=== PATIENT | female | born 1955 | race Caucasian/White ===

== ENCOUNTER 2018-11-10 10:36 | Inpatient (IN) | payer MEDICARE ==
--- NOTE | 2018-11-10 10:56 | ED ---
Back Pain - History of Current Complaint Chief Complaint: EDChestPainROMI Stated Complaint: CHEST TIGHTNESS Time Seen by Provider: 11/10/18 10:47 Hx Obtained From: Patient Pain Intensity: 0 - Allergies/Home Medications Allergies/Adverse Reactions: Allergies Allergy/AdvReac Type Severity Reaction Status Date / Time lorazepam Allergy Tachycardia Verified 11/10/18 10:45 Sulfa (Sulfonamide Allergy Rash Verified 11/10/18 10:45 Antibiotics) PMH/Surg Hx/FS Hx/Imm Hx Endocrine/Hematology History: Denies: Hx Blood Disorders, Hx Blood Transfusions, Hx Bone Marrow Disease, Hx Diabetes, Hx Systemic Lupus Erythematosus, Hx Sickle Cell Disease, Hx Thyroid Disease, Hx Anemia, Hx Unexplained Bleeding, Other Endocrine/ Hematological Disorders Cardiovascular History: Reports: Hx Hypercholesterolemia Denies: Hx Aneurysm, Hx Angina, Hx Angioplasty, Hx Auto Implanted Cardiovert Defib, Hx Cardiac Arrest, Hx Cardiomegaly, Hx Congenital Heart Disease, Hx Congestive Heart Failure, Hx Coronary Artery Disease, Hx Deep Vein Thrombosis, Hx Embolism, Hx Hypotension, Hx Hypertension, Hx Pacemaker/ICD, Hx Peripheral Vascular Disease, Hx Rheumatic Fever, Hx Syncope, Hx Valvular Heart Disease, Other Cardiovascular Problems/Disorders Respiratory History: Reports: Hx Asthma, Hx Chronic Bronchitis Denies: Hx Chronic Obstructive Pulmonary Disease (COPD), Hx Cystic Fibrosis, Hx Lung Cancer, Hx Pleural Effusion, Hx Pneumonia, Hx Pulmonary Edema, Hx Pulmonary Embolism, Hx Seasonal Allergies, Hx Sleep Apnea, Other Respiratory Problems/Disorders GI History: Reports: Hx Gall Bladder Disease, Hx Gastroesophageal Reflux Disease , Other GI Disorders - fahad, appy in past Denies: Hx Cirrhosis, Hx Crohn's Disease, Hx Diverticulosis, Hx Gastrointestinal Bleed, Hx Hiatal Hernia, Hx Irritable Bowel, Hx Jaundice, Hx Obstructive Bowel, Hx Ileostomy, Hx Pyloric Stenosis, Hx Ulcer History: Reports: Hx Kidney Stones, Other Problems/Disorders - retroperitoneal fibrosis, hydronephrosis, urinary stent Denies: Hx Acute Renal Failure, Hx Benign Prostatic Hyperplasia, Hx Chronic Renal Failure, Hx Dialysis, Hx Kidney Infection, Hx Renal Disease Musculoskeletal History: Reports: Hx Arthritis, Hx Back Problems - broken vertebrae, sciatica Denies: Hx Bursitis, Hx Congenital Bone Abnormalities, Hx Fibromyalgia, Hx Gout, Hx Orthopedic Injury, Hx Osteoporosis, Hx Scoliosis, Hx Tendonitis Sensory History: Reports: Hx Cataracts - per pt, Hx Contacts or Glasses Denies: Hx Eye Injury, Hx Eye Prosthesis, Hx Glaucoma, Hx Legally Blind, Hx Macular Degeneration, Hx Vision Problem, Hx Deafness, Hx Hearing Aid, Hx Hearing Problem, Other Sensory Impairments Opthamlomology History: Reports: Hx Cataracts - per pt, Hx Contacts or Glasses Denies: Hx Eye Injury, Hx Eye Prosthesis, Hx Glaucoma, Hx Legally Blind, Hx Macular Degeneration, Hx Vision Problem, Other Sensory Impairments Neurological History: Reports: Hx Spinal Cord Injury - recent back surgery, Hx Transient Ischemic Attacks (TIA), Other Neuro Impairments/Disorders - 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 Denies: Hx Dementia, Hx Developmental Delay, Hx Headaches, Hx Migraine, Hx Nerve Disease, Hx Seizures Psychiatric History: Reports: Hx Depression, Hx Bipolar Disorder Denies: Hx Anxiety, Hx Attention Deficit Hyperactivity Disorder, Hx Eating Disorder, Hx Panic Disorder, Hx Post Traumatic Stress Disorder, Hx Inpatient Treatment, Hx Community Mental Health Tx, Hx Schizophrenia, Hx Suicide Attempt, Hx of Violent Episodes Against Others, Hx Substance Abuse - Cancer History Hx Chemotherapy: No Hx Radiation Therapy: No Hx Palliative Cancer Treatment: No - Surgical History Surgery Procedure, Year, and Place: CHOLECYSTECTOMY, APPENDECTOMY, HYSTERECTOMY , urinary stents, back surgery for herniated disk Hx Anesthesia Reactions: No Infectious Disease History: No Infectious Disease History: Reports: Hx Shingles - 2001 Denies: Hx Clostridium Difficile, Hx Hepatitis, Hx Human Immunodeficiency Virus (HIV), Hx of Known/Suspected MRSA, Hx Tuberculosis, Hx Known/Suspected VRE , Hx Known/Suspected VRSA, History Other Infectious Disease, Traveled Outside the [place] in Last 30 Days - Family History Known Family History: Positive: Cardiac Disease, Hypertension, Diabetes - Social History Alcohol Use: None Substance Use Type: Reports: None Hx Tobacco Use: No Smoking Status (MU): Former Smoker Type: Cigarettes Amount Used/How Often: < 1PPD X 14 YEARS Length of Time of Smoking/Using Tobacco: OFF AND ON (4YEARS IN COLLEGE QUIT FOR 20 YRS, THEN 5 YRS, AND QUIT) Have You Smoked in the Last Year: No Physical Exam Vital Signs On Initial Exam: Initial Vitals Temp Pulse Resp BP Pulse Ox 97.6 F 72 16 172/92 99 11/10/18 10:40 11/10/18 10:40 11/10/18 10:40 11/10/18 10:40 11/10/18 10:40 Diagnostics - Vital Signs Vital Signs Temp Pulse Resp BP Pulse Ox 11/10/18 10:40 97.6 F 72 16 172/92 99 - Laboratory Lab Statement: Any lab studies that have been ordered have been reviewed, and results considered in the medical decision making process. Discharge - Discharge Plan Referrals: Jarad GALVAN,Jacquie Beltre [Primary Care Provider] - - Attestation Statements Document Initiated by Scribe: Yes
--- NOTE | 2018-11-10 11:17 | ED ---
HPI Chest Pain - HPI Summary HPI Summary: A 63 y/o female presents to the ED c/o chest pain. In the ED room, the patient has a pulse of 67 BPM, O2 saturation of 100%, respiratory rate of 19, and blood pressure of 164/74. According to the patient, she has had a stent placed in her coronary artery a year ago. She stated that because of the stent working so well , she was taken off Berlinta as everything was perfect. She stated that she suddenly experienced the same sensation of tightening of her chest and fluttering activity that is "somewhat disorientating". She addtionally felt SOB , but denies any nausea or dizziness. She noted her BP was high. She was referred from her regulatory services consultant office to [facility] [place] ED because of the HBP. Patient did not take any Aspirin or NTG. - History of Current Complaint Chief Complaint: EDChestPainROMI Time Seen by Provider: 11/10/18 10:47 Hx Obtained From: Patient Onset/Duration: Started Hours Ago, Resolved Timing: Constant Current Severity: None Pain Intensity: 0 Pain Scale Used: 0-10 Numeric Chest Pain Location: Diffuse Chest Pain Radiates: No Character: Fluttering, Tightness Aggravating Factor(s): Nothing Alleviating Factor(s): Nothing Associated Signs and Symptoms: Positive: Chest Pain, Shortness of Breath. Negative: Dizziness, Fever, Nausea - Additional Pertinent History Primary Care Physician: RAJI - Allergy/Home Medications Allergies/Adverse Reactions: Allergies Allergy/AdvReac Type Severity Reaction Status Date / Time lorazepam Allergy Tachycardia Verified 11/10/18 10:45 Sulfa (Sulfonamide Allergy Rash Verified 11/10/18 10:45 Antibiotics) Home Medications: Home Medications Oxybutynin XL TAB* [Ditropan XL TAB*] 15 mg PO BID 11/10/18 [History Confirmed 11/10/18] PMH/Surg Hx/FS Hx/Imm Hx Endocrine/Hematology History: Denies: Hx Blood Disorders, Hx Blood Transfusions, Hx Bone Marrow Disease, Hx Diabetes, Hx Systemic Lupus Erythematosus, Hx Sickle Cell Disease, Hx Thyroid Disease, Hx Anemia, Hx Unexplained Bleeding, Other Endocrine/ Hematological Disorders Cardiovascular History: Reports: Hx Hypercholesterolemia Denies: Hx Aneurysm, Hx Angina, Hx Angioplasty, Hx Auto Implanted Cardiovert Defib, Hx Cardiac Arrest, Hx Cardiomegaly, Hx Congenital Heart Disease, Hx Congestive Heart Failure, Hx Coronary Artery Disease, Hx Deep Vein Thrombosis, Hx Embolism, Hx Hypotension, Hx Hypertension, Hx Pacemaker/ICD, Hx Peripheral Vascular Disease, Hx Rheumatic Fever, Hx Syncope, Hx Valvular Heart Disease, Other Cardiovascular Problems/Disorders Respiratory History: Reports: Hx Asthma, Hx Chronic Bronchitis Denies: Hx Chronic Obstructive Pulmonary Disease (COPD), Hx Cystic Fibrosis, Hx Lung Cancer, Hx Pleural Effusion, Hx Pneumonia, Hx Pulmonary Edema, Hx Pulmonary Embolism, Hx Seasonal Allergies, Hx Sleep Apnea, Other Respiratory Problems/Disorders GI History: Reports: Hx Gall Bladder Disease, Hx Gastroesophageal Reflux Disease , Other GI Disorders - fahad, appy in past Denies: Hx Cirrhosis, Hx Crohn's Disease, Hx Diverticulosis, Hx Gastrointestinal Bleed, Hx Hiatal Hernia, Hx Irritable Bowel, Hx Jaundice, Hx Obstructive Bowel, Hx Ileostomy, Hx Pyloric Stenosis, Hx Ulcer History: Reports: Hx Kidney Stones, Other Problems/Disorders - retroperitoneal fibrosis, hydronephrosis, urinary stent Denies: Hx Acute Renal Failure, Hx Benign Prostatic Hyperplasia, Hx Chronic Renal Failure, Hx Dialysis, Hx Kidney Infection, Hx Renal Disease Musculoskeletal History: Reports: Hx Arthritis, Hx Back Problems - broken vertebrae, sciatica Denies: Hx Bursitis, Hx Congenital Bone Abnormalities, Hx Fibromyalgia, Hx Gout, Hx Orthopedic Injury, Hx Osteoporosis, Hx Scoliosis, Hx Tendonitis Sensory History: Reports: Hx Cataracts - per pt, Hx Contacts or Glasses Denies: Hx Eye Injury, Hx Eye Prosthesis, Hx Glaucoma, Hx Legally Blind, Hx Macular Degeneration, Hx Vision Problem, Hx Deafness, Hx Hearing Aid, Hx Hearing Problem, Other Sensory Impairments Opthamlomology History: Reports: Hx Cataracts - per pt, Hx Contacts or Glasses Denies: Hx Eye Injury, Hx Eye Prosthesis, Hx Glaucoma, Hx Legally Blind, Hx Macular Degeneration, Hx Vision Problem, Other Sensory Impairments Neurological History: Reports: Hx Spinal Cord Injury - recent back surgery, Hx Transient Ischemic Attacks (TIA), Other Neuro Impairments/Disorders - 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 Denies: Hx Dementia, Hx Developmental Delay, Hx Headaches, Hx Migraine, Hx Nerve Disease, Hx Seizures Psychiatric History: Reports: Hx Depression, Hx Bipolar Disorder Denies: Hx Anxiety, Hx Attention Deficit Hyperactivity Disorder, Hx Eating Disorder, Hx Panic Disorder, Hx Post Traumatic Stress Disorder, Hx Inpatient Treatment, Hx Community Mental Health Tx, Hx Schizophrenia, Hx Suicide Attempt, Hx of Violent Episodes Against Others, Hx Substance Abuse - Cancer History Hx Chemotherapy: No Hx Radiation Therapy: No Hx Palliative Cancer Treatment: No - Surgical History Surgery Procedure, Year, and Place: CHOLECYSTECTOMY, APPENDECTOMY, HYSTERECTOMY , urinary stents, back surgery for herniated disk Hx Anesthesia Reactions: No Infectious Disease History: No Infectious Disease History: Reports: Hx Shingles - 2001 Denies: Hx Clostridium Difficile, Hx Hepatitis, Hx Human Immunodeficiency Virus (HIV), Hx of Known/Suspected MRSA, Hx Tuberculosis, Hx Known/Suspected VRE , Hx Known/Suspected VRSA, History Other Infectious Disease, Traveled Outside the [place] in Last 30 Days - Family History Known Family History: Positive: Cardiac Disease, Hypertension, Diabetes - Social History Alcohol Use: None Substance Use Type: Reports: None Hx Tobacco Use: No Smoking Status (MU): Former Smoker Type: Cigarettes Amount Used/How Often: < 1PPD X 14 YEARS Length of Time of Smoking/Using Tobacco: OFF AND ON (4YEARS IN COLLEGE QUIT FOR 20 YRS, THEN 5 YRS, AND QUIT) Have You Smoked in the Last Year: No Review of Systems Negative: Fever Positive: Chest Pain Positive: Shortness Of Breath Negative: Nausea Neurological: Other - NEGATIVE: DIZZINESS All Other Systems Reviewed And Are Negative: Yes Physical Exam - Summary Physical Exam Summary: VITAL SIGNS: Reviewed. GENERAL: Patient is a well-developed and nourished female who is lying comfortable in the stretcher. Patient is not in any acute respiratory distress. HEAD AND FACE: No signs of trauma. No ecchymosis, hematomas or skull depressions. No sinus tenderness. EYES: PERRLA, EOMI x 2, No injected conjunctiva, no nystagmus. EARS: Hearing grossly intact. Ear canals and tympanic membranes are within normal limits. MOUTH: Oropharynx within normal limits. NECK: Supple, trachea is midline, no adenopathy, no JVD, no carotid bruit, no c- spine tenderness, neck with full ROM. CHEST: Symmetric, no tenderness at palpation LUNGS: Clear to auscultation bilaterally. No wheezing or crackles. CVS: Regular rate and rhythm, S1 and S2 present, no murmurs or gallops appreciated. ABDOMEN: Soft, non-tender. No signs of distention. No rebound no guarding, and no masses palpated. Bowel sounds are normal. EXTREMITIES: FROM in all major joints, no edema, no cyanosis or clubbing. NEURO: Alert and oriented x 3. No acute neurological deficits. Speech is normal and follows commands. SKIN: Dry and warm Triage Information Reviewed: Yes Vital Signs On Initial Exam: Initial Vitals Temp Pulse Resp BP Pulse Ox 97.6 F 72 16 172/92 99 11/10/18 10:40 11/10/18 10:40 11/10/18 10:40 11/10/18 10:40 11/10/18 10:40 Vital Signs Reviewed: Yes Diagnostics - Vital Signs Vital Signs Temp Pulse Resp BP Pulse Ox 11/10/18 10:40 97.6 F 72 16 172/92 99 - Laboratory Result Diagrams: 11/10/18 11:03 11/10/18 11:03 Lab Statement: Any lab studies that have been ordered have been reviewed, and results considered in the medical decision making process. - Radiology CXR Radiology Interpretation Completed By: Radiologist Summary of Radiographic Findings: No active cardiopulmonary disease is identified. ED PHYSICIAN REVIEWED THIS RADIOLOGY REPORT. - EKG 1049 Cardiac Rate: Bradycardia - 57 BPM EKG Rhythm: Sinus Bradycardia - 57 BPM Summary of EKG Findings: NO ST ELEVATIONS. Chest Pain Course/Dx - Course Course Of Treatment: A 63 y/o female presents to the ED c/o chest pain. In the ED room, the patient has a pulse of 67 BPM, O2 saturation of 100%, respiratory rate of 19, and blood pressure of 164/74. According to the patient, she has had a stent placed in her coronary artery a year ago. She stated that because of the stent working so well, she was taken off Berlinta as everything was perfect. She stated that she suddenly experienced the same sensation of tightening of her chest and fluttering activity that is "somewhat disorientating ". She addtionally felt SOB, but denies any nausea or dizziness. She noted her BP was high. She was referred from her regulatory services consultant office to [facility] [place] ED because of the HBP. Patient did not take any Aspirin or NTG. Assessment/Plan: Test results without any significant abnormality except for what was a count of 11.3. D-dimer is less than 200 therefore no suspicion for a PE. Glucose 103 month patient was 1.8. The patient was given magnesium by mouth. 2 troponins 4 hours apart as 0.01. EKG shows no ST elevations. Chest x -ray shows no acute. Chest x-ray impression: No active cardiopulmonary disease. In the ED course the patient was given aspirin as her usual medication. She declined nitroglycerin since the chest pain had resolved. Since arrival the patient does have any chest pain. The patient continues to be asymptomatic. First troponin was negative however the second troponin increased to 0.07. The patient believes to be asymptomatic. However because of increased troponin I discussed my physical exam and findings with Dr. Cabrales from the hospitalist services who accepted the patient for admission. Patient is hemolyticus stable alert and oriented 3. - Chest Pain Differential Diagnosis/HQI/PQRI: Acute VA, ACS, Angina, CHF, Chest Wall, GI Disease, Lower Respiratory Infection - Diagnoses Provider Diagnoses: Elevated troponin, Chest pain, Non-STEMI (non-ST elevated myocardial infarction ) - Provider Notifications Discussed Care Of Patient With: Joshua Parry Time Discussed With Above Provider: 16:30 Instructed by Provider To: Other - accepts patient for admission. - Critical Care Time Critical Care Time: 75-104 min Discharge - Sign-Out/Discharge Documenting (check all that apply): Patient Departure - ADMIT, Sign-Out Patient - MOUSTAPHA Signing out patient TO: Joshua Parry Receiving patient FROM: Deny Velasco - Discharge Plan Condition: Stable Disposition: ADMITTED TO [facility] - Billing Disposition and Condition Condition: STABLE Disposition: Admitted to [facility] - Attestation Statements Document Initiated by Vaughne: Yes Documenting Scribe: Edd Robles Provider For Whom Kennedy is Documenting (Include Credential): Deny Velasco MD Scribe Attestation: Edd Gilbert scribed for Deny Velasco MD on 11/10/18 at 1848. Scribe Documentation Reviewed: Yes Provider Attestation: The documentation as recorded by the Edd paredes accurately reflects the service I personally performed and the decisions made by me, Deny Velasco MD Status of Scribe Document: Viewed Attestations Scribe Attestation: Edd Robles User Type: Provider
[2018-11-10 11:18] LABS: ABS Basophils 0.1 10^3/ul (0-0.2); ABS Eosinophils 0.1 10^3/ul (0-0.6); ABS Lymphocytes 1.7 10^3/ul (1.0-4.8); ABS Monocytes 0.5 10^3/ul (0-0.8); ABS Nucleated RBC 0 10^3/ul; Eosinophil % 0.7 %; Hematocrit 41 % (35-47); Hemoglobin 13.5 g/dl (12.0-16.0); Lymphocyte % 15.1 %; Mean Corpuscular HGB Conc 33 g/dl (31-36); Mean Corpuscular Hemoglobin 30 pg (27-31); Mean Corpuscular Volume 90 fL (80-97); Mean Platelet Volume 7.2 fL (7.4-10.4); Nucleated Red Blood Cells % 0; Platelet Count 353 10^3/ul (150-450); Red Blood Count 4.54 10^6/ul (4.00-5.40); Red Cell Distribution Width 14 % (10.5-15); White Blood Count 11.3 10^3/ul (3.5-10.8)
[2018-11-10 11:26] LABS: Activated Partial Thrombo Time 32.1 seconds (26.0-36.3)
[2018-11-10 11:30] LABS: Albumin 4.5 g/dL (3.2-5.2); Albumin/Globulin Ratio 1.7 (1-3); BUN/Creatinine Ratio 22.2 (8-20); Calcium 9.3 mg/dL (8.6-10.3); EGFR African American 99.6 (>60); EGFR Non-African American 82.3 (>60); Globulin 2.7 g/dL (2-4); Magnesium 1.8 mg/dL (1.9-2.7); Potassium 3.9 mmol/L (3.5-5.0); Total Bilirubin 0.3 mg/dL (0.2-1.0); Total Protein 7.2 g/dL (6.4-8.9)
[2018-11-10 11:32] LABS: Troponin I 0.01 ng/mL (<0.04)
[2018-11-10 11:34] LABS: CKMB ng/mL 2.8 ng/mL (0.6-6.3)
[2018-11-10 12:09] LABS: TSH (Thyroid Stimulating Horm) 1.17 mcIU/mL (0.34-5.60)
[2018-11-10] MEDS ORDERED: Aspirin 81 mg CHEW TAB* 81 MG TAB.CHEW PO ONE (13:20)
[2018-11-10] MEDS ORDERED: Albuterol HFA INHALER* 8 gm MDI INH PRN (17:16)
[2018-11-10] MEDS ORDERED: Acetaminophen TAB* 325 MG PO PRN (17:16)
[2018-11-10] MEDS ORDERED: Ondansetron INJ* 2 MG/ML VIAL IV PRN (17:16)
[2018-11-10] MEDS ORDERED: Nitroglycerin TAB 0.4 MG* 0.4 MG TAB SL PRN (17:16)
[2018-11-10] MEDS ORDERED: NS 0.9% 1000 ML** 1,000 ML IV SCH (17:30)
[2018-11-10] MEDS ORDERED: Ticagrelor* 90 MG TAB PO ONE (18:41)
[2018-11-10] MEDS: Enoxaparin(*) 60 MG/0.6 ML SYR SUBCUT SCH (19:07)
[2018-11-10] MEDS: Atorvastatin* 80 MG TAB PO SCH (20:19)
[2018-11-10] MEDS: Oxybutynin XL TAB* 5 MG PO SCH (20:19)
--- NOTE | 2018-11-10 20:44 | HP ---
CC: Dr. Abraham; Dr. Ruiz * ADMISSION HISTORY AND PHYSICAL: DATE OF ADMISSION: 11/10/18 PRIMARY CARE PROVIDER: Dr. Abraham at [facility] SHEET ROLLER OPERATOR: Dr. Ruiz. HEALTHCARE PROXY: Her sister, Janneth. CODE STATUS: Full. SOURCE OF INFORMATION: History obtained from interview with the patient and her son as well as review of past medical records. RELIABILITY: Good. CHIEF COMPLAINT: Chest pain. HISTORY OF PRESENT ILLNESS: A 63-year-old female with past medical history of CAD, status post LAD PCI in 2014, been in her usual state of health until this morning. She woke up okay. She was in bed on the phone with her daughter who is in the emergency room, having a stressful conversation, felt a tightness of her chest associated with a fluttering. It lasted for approximately 1 hour. She noted this is a similar feeling to the sensation she had in 2016 when she had obstructive cardiac disease. The discomfort was nonradiating, lasted for 1 hour, associated with shortness of breath at first but without diaphoresis, nausea, or lightheadedness. She took her blood pressure. It was elevated. She talked to her cardiology office and was directed to EMS to go to [facility]. She sought out her nitroglycerin sublingual; however, it was and she could not take it. When seen by this author, she currently feels okay. 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 Otherwise, she has had no symptoms, diarrhea, or constipation. No fever, chills, or night sweats. The remainder of her 14-point review of systems is negative. PAST MEDICAL HISTORY: Includes CVA x2 in 2003; hyperlipidemia; asthma; bipolar disorder; NSTEMI in 2014, seen with nonobstructive disease; and a CAD, status post LAD PCI in 2016. 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 MEDICATIONS: 1. Fluoxetine 90 mg. 2. Aspirin 81 mg. 3. Lipitor 80 mg. 4. Oxybutynin SR 50 mg twice daily. ALLERGIES: SULFA. FAMILY HISTORY: Paternal grandmother and grandfather with CAD, her brother with diabetes. SOCIAL HISTORY: She is disabled. History of tobacco, quit 10 years prior, has 10- year-pack history. No alcohol. PHYSICAL EXAMINATION GENERAL: A 63-year-old female, older than stated age, sitting up in bed, thin, no apparent distress. VITAL SIGNS: In the emergency room 172/92, 140/70 when seen by this author; heart rate 72, respiratory rate 16, 99% on room air, T-max 97.6. HEENT: Oropharynx is clear. Has dry mucous membranes. Sclerae are anicteric. NECK: Nonelevated JVD, has no carotid bruits. LUNGS: Her lungs are clear to auscultation. HEART: She has a regular rate and rhythm. She has a 2/6 systolic ejection murmur. ABDOMEN: Soft, nontender, nondistended. EXTREMITIES: Warm and well perfused without clubbing, cyanosis, or edema. She is alert and oriented x3. Her cranial nerves II through XII are intact. She has no apparent anxiety, agitation, or depression. LABORATORY DATA/DIAGNOSTIC STUDIES: Labs are reviewed. Troponin I 0.01, increasing to 0.07 on the second check. BNP is 35. D-dimer less than 200. White blood cell count is 11.5, hemoglobin 13.5, platelets 353. EKG notable for sinus bradycardia, ventricular rate of 57, normal axis, normal R - wave progression, mild ST elevation of V1 through V3 with J-point inflection. No other ST or T-wave changes. Chest x-ray, no active cardiopulmonary disease is identified. ASSESSMENT AND PLAN: This is a 63-year-old female with past medical history of coronary artery disease with a stent in her LAD in 2016, presenting with similar symptoms of chest tightness for an hour associated with increasing troponin, no EKG changes. 1. Non-ST elevation myocardial infarction. Continue to cycle troponins. Repeat EKG. Plan a stress tomorrow, exercise with nuclear imaging. Received aspirin, will continue tomorrow. In the setting of compelling story with chest discomfort in the setting of stress as well as history and similarity with the previous event, we will dose full dose of Lovenox now and continue until ruled out. We have ruled out an myocardial infarction. If increasing troponins, warrant earlier intervention, consider cardiology consultation. 2. History of cerebrovascular accidents and coronary artery disease. Continue aspirin. 3. Bipolar disorder/potential history of depression. Fluoxetine, continue. 4. Hyperlipidemia. Continue full dose 80 mg as well as for concern for coronary artery disease indicated above. 5. DVT prophylaxis: Lovenox. [id number]/[facility] #: [id number] MTDD
[2018-11-11] MEDS: Enoxaparin(*) 60 MG/0.6 ML SYR SUBCUT SCH (05:37)
[2018-11-11] MEDS ORDERED: Diazepam TAB(*) 5 MG PO PRN (07:42)
[2018-11-11] MEDS ORDERED: diPHENhydraMINE PO* 25 MG PO PRN (07:42)
[2018-11-11] MEDS ORDERED: NS 0.9% 1000 ML** 1,000 ML IV SCH ×2 (07:45→09:55)
[2018-11-11] MEDS: Aspirin EC TAB* 81 MG TAB.EC PO SCH (08:15)
[2018-11-11] MEDS: Ticagrelor* 90 MG TAB PO SCH ×2 (08:36→18:23)
[2018-11-11] MEDS ORDERED: Heparin(*) 1000 UNIT/ML 10 ML VIAL CATH LAB IV ONE (08:43)
[2018-11-11] MEDS ORDERED: fentaNYL* 50 MCG/ML 2 ML VIAL (100 MCG VIAL) ONE (08:43)
[2018-11-11] MEDS ORDERED: Midazolam* 1 MG/ML 10 ML VIAL (10 MG) ONE (08:43)
[2018-11-11] MEDS ORDERED: Lidocaine 1% INJ* 10 MG/ML 30 ML SDV ONE (08:44)
[2018-11-11] MEDS ORDERED: VERAPAMIL 2.5 MG/ML 2 ML VIAL ** 5 mg/2 ml ONE (08:44)
[2018-11-11] MEDS ORDERED: Heparin 2 UNITS/ML IVPREMIX* 2,000 ML IV ONE (08:44)
[2018-11-11] MEDS ORDERED: nitroGLYCERIN DRIP* 25,000 MCG/250 ML BTL ONE (08:44)
[2018-11-11] MEDS ORDERED: Iohexol 350 (CONTRAST) 200 ML MDV IV ONE ×2 (08:45)
[2018-11-11] MEDS ORDERED: Diltiazem CD CAP* 120 MG PO ONE (09:59)
[2018-11-11] MEDS: Oxybutynin XL TAB* 5 MG PO SCH ×2 (11:07→20:47)
--- NOTE | 2018-11-11 11:20 | CONS ---
CC: Dr. Ruiz; Dr. Ken Yao CARDIOLOGY CONSULTATION: DATE OF CONSULT: 11/11/18 INDICATION FOR CONSULTATION: Coronary disease, acute coronary syndrome. HISTORY OF PRESENT ILLNESS: The patient is a 63-year-old female with a history of coronary disease, history of stenting to her LAD in 2016, who comes in with typical anginal type symptoms. The patient states that she was driving and noticed a burning sensation in her chest, it came on fairly quickly and lasted for approximately an hour and then slowly resolved. It is very similar to her presentatio n back in 2014. When she arrived in the emergency room, she had no EKG changes. The patient overnig ht had a peak troponin level of 0.7. PAST MEDICAL HISTORY: Significant for CVA x2, hyperlipidemia, stenting to her LAD in 2016. PAST SURGICAL HISTORY: Hysterectomy, cholecystectomy, appendectomy. OUTPATIENT MEDICATIONS: 1. Fluoxetine 90 mg a day. 2. Aspirin 81 mg a day. 3. Lipitor 80 mg a day. 4. Oxybutynin 50 mg a day. ALLERGIES: SULFA medications. FAMILY HISTORY: No immediate history of coronary disease in her family. Grandparents had coronary ar ish disease. Brother has diabetes. SOCIAL HISTORY: She is a previous smoker, she quit 10 years ago. She denies any alcohol use. She i s currently not working as she is disabled. PHYSICAL EXAM: Height is 5 feet 7 inches, weight is 125 pounds. Temperature 98.4, heart rate is 60, blood pressure 140/70, respiratory rate is 17, oxygen saturation 100% on room air. Sclerae anicteri c. Oropharynx is pink without erythema. Carotids are 2+ without bruits. JVD is normal. Thyroid is normal. Cardiac Exam: S1, S2 without any murmurs, rubs, or gallops. Lungs: Clear to auscultation b ilaterally. There is no dullness to percussion. Abdomen: Soft, nontender, nondistended with normoa ctive bowel sounds. Extremities: Show no edema. She has 2+ pulses throughout. The patient is awak e, alert, and oriented. She moves all 4 extremities equally. DIAGNOSTIC STUDIES/LAB DATA: Chemistries within normal limits. BUN 16, creatinine 0.7. AST and ALT are normal. Again, peak troponin level is 0.7. TSH is normal. CBC within normal limits. EKG shows normal sinus rhythm. No evidence of acute changes. IMPRESSION: This is a 63-year-old female with a history of coronary disease. She is admitted to the hospital with typical anginal type symptoms. Her troponin level is elevated at 0.7. The patient received Lovenox, Brilinta, and aspirin in the emergency room. For now, my recommendation the patient undergo cardiac catheterization. Risks and benefits of this w ere described in great detail. The patient is willing to proceed. The patient will be seen by Dr. Shayna Yao for cardiac catheterization. [id number]/[facility] #: [id number]
[2018-11-11] MEDS: FLUoxetine CAP* 20 MG PO SCH (15:06)
--- NOTE | 2018-11-11 15:11 | CATH ---
CC: Dr. Kee Ruiz; Jacquie Abraham MD * CARDIAC CATHETERIZATION REPORT: DATE OF PROCEDURE: 11/11/18 - ROOM #444 INDICATION FOR CARDIAC CATHETERIZATION: The patient presents with a chest discomfort after an emotional phone call with abnormal cardiac enzymes raising question of acute coronary syndrome with a history of prior stent to the proximal to mid LAD. Assess for the presence of significant coronary artery disease. PROCEDURE: Coronary arteriography, left heart catheterization, left ventriculography. CONSENT: The patient was interviewed and examined on the floor of the hospital where the risks and benefits were explained. She understood them and wished to proceed. APPROACH UTILIZED: On the floor of the hospital, the radial artery was assessed under ultrasound and found to be as an acceptable access and as such this approach was utilized. PRE-CARDIAC CATHETERIZATION LABORATORY RESULTS: Hemoglobin and hematocrit of 13.5 and 41 with a platelet count of 353,000. BUN and creatinine of 16 and 0.7 , sodium 136, potassium 3.9, chloride 104, bicarb 27. EQUIPMENT UTILIZED: 1. Right radial artery guide sheath - a 6-[place]ian Glidesheath. 2. Diagnostic coronary catheter - a 5-[place]vian TIG 4 curve catheter. 3. Diagnostic guidewire, a 260 length Beckman curved guidewire. 4. Left heart catheterization catheter, a 5-[place] PIG Performa radial catheter. 5. Closure technique utilized, a radial artery band by [employer]. MEDICATIONS GIVEN DURING THE PROCEDURE: 1. Radial artery cocktail including 300 mcg of nitroglycerin and 3 mg verapamil. 2. The patient had already received Valium 5 mg and Benadryl 25 mg orally on the floor of the hospital before coming down. 3. The patient already received her aspirin for this morning and her 90 mg of Brilinta. 4. An additional 0.5 mg of Versed was given to the patient. DESCRIPTION OF PROCEDURE: The patient was brought to the cardiovascular laboratory and a formal time-out was performed. She was prepped and draped in a sterile fashion. Under ultrasound guidance, the right radial artery was cannulated and the sheath was placed. Diagnostic coronary arteriography was performed with a TIG 4 catheter. Central aortic pressure was recorded with the PIG Performa catheter, advanced the ascending aorta where central aortic pressure was recorded. Catheter was then passed across the aortic into the left ventricle where left ventricular pressure was recorded. Left ventriculography was performed utilizing a total of 24 cc of Omnipaque dye at a rate of 12 cc per second. The catheter was then pulled back across the aortic valve to recheck gradient. At the end of the case, the catheter and sheath were removed and hemostasis was obtained with a Vasc Band. The reverse Barbeau was a B. The total contrast used was 90 cc of Omnipaque dye. The radiation exposure included 6.2 minutes of fluoro time. The air kerma radiation was 724 milligray. The DAP radiation was 4226 microgray per meter squared. RESULTS: HEMODYNAMIC DATA: Left heart catheterization - central aortic pressure was recorded at 170/86 with a mean of 123. Left ventricular pressure 166 over left ventricular end- diastolic pressure of 7. LEFT VENTRICULOGRAPHY: Performed in the CHOI projection revealed normal left ventricular systolic function with no significant focal wall motion abnormalities. The overall ejection fraction was 65%. CORONARY ARTERIOGRAPHY: A. Left coronary artery: 1. Left main - widely patient with no obstruction seen. 2. Left anterior descending artery. The left anterior descending artery was noted to have calcium proximally with a stent placed in its proximal to mid portion. There is a caliber change in the most proximal portion of the LAD of about 45-50%, seen in limited views . There was mild in-stent restenosis seen in the distal third of approximately 25% to 30%. Of note, there were 2 septal perforators originating within the stented area, the more proximal one having a 55% to 60% ostial narrowing and the second one having a narrowing as much as 80% . Neither one were deemed to be approachable from an interventional standpoint given their caliber and the fact that they were septal perforators. The first diagonal branch had an eccentric plaque noted at its beginning with a degree of luminal irregularity noted to be approximately 55% to 60%. 3. Circumflex artery - a nondominant vessel supplying a large size obtuse marginal branch extending to the apical posterior region and bifurcating. There were mild luminal irregularities of 20% to 25% noted in the mid portion of that vessel. B. Right coronary artery. The right coronary artery was a dominant vessel supplying the PDA and a posterior left ventricular branch. There was minimal luminal irregularities noted. There was a prominent calix's crook seen in the proximal portion of the vessel. No significant focal stenosis was noted. Of note, the PDA extended to the apex and supplied the distal apical anterior wall. OVERALL ASSESSMENT: Normal left ventricular contractility with mild to moderate proximal LAD tapering with mild in-stent restenosis in prior proximal to mid LAD stent. Moderate disease involving the ostium of a high first diagonal branch as described above with more significant stenosis seen in the ostium of 2 septal perforators that are not deemed to be approached from an interventional standpoint. At this point in time, aggressive medical management will be pursued and the institution of calcium channel fannie for possibly spasm or fixed lesions would be recommended. Of note, her episode of discomfort seemed to develop in the setting of an emotional distressed conversation at rest, not doing physical exertion. Continued aggressive risk factor management under Dr. Ruiz's guidance, her primary sheet metal former, will be recommended and consideration for perhaps outpatient evaluation by exercise stress test to see if there is more significant evidence of ischemia to any of the areas mentioned on medical management. That will be deferred to her followup with Dr. Kee Ruiz. [id number]/[facility] #: [id number] ROYCE
[2018-11-11] MEDS ORDERED: Clopidogrel TAB* 300 MG PO ONE (15:23)
--- NOTE | 2018-11-11 15:26 | PN ---
Subjective Date of Service: 11/11/18 Interval History: Pt feels well, after the cath with R radial approach. Denies CP/SOB Objective Active Medications: Acetaminophen (Tylenol Tab*) 650 mg PO Q4H PRN PRN Reason: FEVER/PAIN Albuterol (Ventolin Hfa Inhaler*) 2 puff INH Q4H PRN PRN Reason: SOB/WHEEZING Aspirin (Aspirin Ec Tab*) 81 mg PO DAILY [facility] Last Admin: 11/11/18 08:15 Dose: 81 mg Atorvastatin Calcium (Lipitor*) 80 mg PO 2100 [facility] Last Admin: 11/10/18 20:19 Dose: 80 mg Diltiazem HCl (Cardizem Cd Cap*) 120 mg PO DAILY [facility] Fluoxetine HCl (Prozac Cap*) 20 mg PO 1200 [facility] Last Admin: 11/11/18 15:06 Dose: 20 mg Nitroglycerin (Nitroglycerin Tab 0.4 Mg*) 0.4 mg SL Q5M PRN PRN Reason: ANGINA Ondansetron HCl (Zofran Inj*) 4 mg IV Q4H PRN PRN Reason: NAUSEA/VOMITING Oxybutynin Chloride (Ditropan Xl Tab*) 15 mg PO BID [facility] Last Admin: 11/11/18 11:07 Dose: Not Given Vital Signs - 8 hr 11/11/18 11/11/18 11/11/18 08:00 08:36 09:58 Temperature Pulse Rate 59 Respiratory 21 16 24 Rate Blood Pressure 135/97 (mmHg) O2 Sat by Pulse 96 Oximetry 11/11/18 11/11/18 11/11/18 10:00 10:04 10:08 Temperature Pulse Rate 75 64 66 Respiratory 19 22 21 Rate Blood Pressure 145/89 162/90 (mmHg) O2 Sat by Pulse 98 99 98 Oximetry 11/11/18 11/11/18 11/11/18 10:10 10:13 10:19 Temperature 99.8 F Pulse Rate 58 63 Respiratory 16 17 Rate Blood Pressure 160/97 167/89 (mmHg) O2 Sat by Pulse 98 96 Oximetry 11/11/18 11/11/18 11/11/18 10:23 10:28 10:34 Temperature Pulse Rate 70 65 67 Respiratory 16 26 21 Rate Blood Pressure 141/81 161/89 136/77 (mmHg) O2 Sat by Pulse 98 98 98 Oximetry 01/11/11/18 11/11/18 10:39 10:44 10:49 Temperature Pulse Rate 57 64 66 Respiratory 17 20 21 Rate Blood Pressure 172/85 160/94 165/87 (mmHg) O2 Sat by Pulse 98 98 98 Oximetry 11/11/18 11/11/18 11/11/18 10:54 11:03 11:04 Temperature Pulse Rate 57 79 70 Respiratory 12 22 Rate Blood Pressure 154/77 161/89 (mmHg) O2 Sat by Pulse 98 99 98 Oximetry 11/11/18 11/11/18 11/11/18 11:09 11:14 11:19 Temperature Pulse Rate 72 67 74 Respiratory 21 20 21 Rate Blood Pressure 168/75 171/85 163/71 (mmHg) O2 Sat by Pulse 99 99 98 Oximetry 11/11/18 11/11/18 11/11/18 11:24 11:30 11:34 Temperature Pulse Rate 66 69 67 Respiratory 13 17 21 Rate Blood Pressure 154/90 169/86 156/79 (mmHg) O2 Sat by Pulse 99 99 98 Oximetry 11/11/18 11/11/18 14:14 14:15 Temperature Pulse Rate Respiratory 16 16 Rate Blood Pressure (mmHg) O2 Sat by Pulse Oximetry Oxygen Devices in Use Now: None Appearance: 63 yo F in NAD, AAOx3 Eyes: No Scleral Icterus, PERRLA Ears/Nose/Mouth/Throat: NL Teeth, Lips, Gums, Mucous Membranes Moist Neck: NL Appearance and Movements; NL JVP, Trachea Midline Respiratory: Symmetrical Chest Expansion and Respiratory Effort, Clear to Auscultation Cardiovascular: NL Sounds; No Murmurs; No JVD, RRR Abdominal: NL Sounds; No Tenderness; No Distention Lymphatic: No Cervical Adenopathy Extremities: No Edema, No Clubbing, Cyanosis Skin: No Rash or Ulcers, No Nodules or Sclerosis Neurological: Alert and Oriented x 3, NL Muscle Strength and Tone Result Diagrams: 11/10/18 11:03 11/10/18 11:03 Assess/Plan/Problems-Billing Assessment: 63 yo F with h/o CAD presents with CP and elevated troponin - Patient Problems (1) NSTEMI (non-ST elevated myocardial infarction) Comment: troponin peaked at 0.7 Cath shows patenet LAD stent and 85% of septal x ray equipment tester stenosis, 60% diagonal branch- too small for intervention. As d/w Dr. Christine: Cardizem started, Cont ASA. will place pt on dual antiplatelet tx with ASA and Plavix x 6 months. (2) Psychiatric disorder Comment: cont fluoxetine (3) DVT prophylaxis Comment: lovenox Status and Disposition: inpatient, plan for d/c tomorrow
[2018-11-11 17:22] LABS: Urine Appearance Clear; Urine Bacteria Absent (Absent); Urine Bilirubin Negative (Negative); Urine Blood 1+ (Negative); Urine Color Straw; Urine Glucose Negative (Negative); Urine Ketones Negative (Negative); Urine Nitrite Negative (Negative); Urine Protein Negative (Negative); Urine Red Blood Cell Absent (Absent); Urine Specific Gravity 1.008 (1.010-1.030); Urine Squamous Epithelial Cell Present (Absent); Urine Urobilinogen Negative (Negative); Urine White Blood Cell Absent (Absent)
[2018-11-11] MEDS ORDERED: Enoxaparin(*) 40 MG/0.4 ML SYR SUBCUT SCH (20:00)
[2018-11-11] MEDS: Atorvastatin* 80 MG TAB PO SCH (20:47)
[2018-11-12 06:26] LABS: EGFR African American 116.2 (>60); EGFR Non-African American 96.1 (>60); HDL Cholesterol 52.2 mg/dL; Potassium 4.3 mmol/L (3.5-5.0)
[2018-11-12] MEDS ORDERED: Diltiazem CD CAP* 120 MG PO SCH (09:00)
[2018-11-12] MEDS ORDERED: Clopidogrel TAB* 75 MG PO SCH (09:00)
[2018-11-12] MEDS: Aspirin EC TAB* 81 MG TAB.EC PO SCH (09:39)
[2018-11-12] MEDS: Oxybutynin XL TAB* 5 MG PO SCH (09:42)
[2018-11-12] MEDS: FLUoxetine CAP* 20 MG PO SCH (12:40)
[2018-11-12 12:45] VITALS: BP 120/64
--- NOTE | 2018-11-12 18:13 | DS ---
CC: Dr. Abraham, at [facility]; Dr. Yao, Cardiology; Dr. Ruiz, Cardiology * DISCHARGE SUMMARY: DATE OF ADMISSION: 11/10/18 DATE OF DISCHARGE: 11/12/18 PRIMARY MEDICAL PROVIDER: Dr. Abraham, at [facility]. DISCHARGE DIAGNOSIS: Chest pain due to unstable angina. SECONDARY DIAGNOSES: 1. History of cerebrovascular accident x2 in 2003. 2. Hyperlipidemia. 3. Asthma. 4. History of bipolar disorder. 5. History of non-ST elevation myocardial infarction in 2014 status post a stent into the LAD in 2015. 6. History of idiopathic retroperitoneal fibrosis. 7. Status post cholecystectomy in 2004. 8. Hysterectomy remotely. 9. Appendectomy 2010. MEDICATIONS AT DISCHARGE: Include: 1. Nitroglycerin on p.r.n. basis. 2. Lipitor 80 mg daily. 3. Ditropan XL 15 mg b.i.d. 4. Prozac 20 mg daily. 5. Aspirin 81 mg daily. 6. Albuterol inhaler on p.r.n. basis. 7. Cardizem CD 120 mg daily. 8. Plavix 75 mg daily. CONSULTATION DURING THE HOSPITAL STAY: Included Dr. Yao from Cardiology. PROCEDURES PERFORMED: Cardiac catheterization performed by Dr. Yao on with overall impression: "Normal ventricular contractility with mild-to- moderate proximal LAD tapering with mild to in stent restenosis at 25% and prior proximal-to- mid LAD stent. The moderate disease involving the ostium of a high first diagonal branch as described above with more significant stenosis seen at the ostium of the 2 septal perforators that are not deemed to be approachable from an interventional standpoint. Those blood vessels were up to 85% stenosis. At this point in time, aggressive medical management will be pursued and the institution of calcium channel fannie for possibly spasms or fixed lesions will be recommended. Of note, her episode of discomfort seems to develop in the setting of an emotionally distressed conversation at rest, not during physical exertion. Continued aggressive risk management under Dr. Ruiz 's guidance, her primary instrumental teacher, will be recommended and consideration for perhaps outpatient evaluation by exercise stress test to see if there is more significant evidence of ischemia to any of the areas mentioned on the medical management. That will be deferred to followup with Dr. Ruiz." LABORATORY DATA AND STUDIES PERFORMED DURING THE HOSPITAL STAY: Included: The patient's lipid profile showed triglycerides of 113, cholesterol of 141 total, LDL of 66, and HDL 52. The patient's TSH was 1.17. On 11/12/18, sodium of 138 , potassium of 4.3, chloride of 108, carbon dioxide 23, BUN 12, creatinine 0.63. The patient's D-dimer was below detectable at admission. The patient's portable chest x-ray at admission, "no active cardiopulmonary disease identified." HOSPITALIZATION COURSE: Jacquie Montes is a 63-year-old female with history of coronary artery disease, who presented to the hospital complaining of chest pain that developed after she had an argument. Her troponins peaked at 0.7. The patient was treated for stable angina with Lovenox and aspirin as well as Brilinta. The patient was taken to the laboratory tester on 11/11/[address] Yao, which showed in- stent restenosis of LAD of 25% as well as a septal demi chef disease of 60% and another small branch of diagonal of 85%. None of those blood vessels were amenable for intervention. The patient was started by Dr. Yao on Cardizem CD 120 mg daily with good results. We also discussed the use of Plavix. The patient has no coverage for medications and only medicare without supplemental insurance plan. At this point, Plavix will likely be the cheapest for the patient to use as dual antiplatelet treatment for her coronary artery disease with mild in-stent restenosis. At this point, the patient being on Prozac may diminish the activity of Plavix some what. Nevertheless, the patient is agreeable to continuing Plavix and aspirin. The patient cannot afford atorvastatin and her LDL is 66. She was not prescribed atorvastatin at discharge per request. The patient is also going to be placed on Cardizem CD 120 mg for vasodilating effect as recommended by Dr. Yao. At discharge, the patient recommended to follow up with Dr. Yao on 11/25/18 at 2:45 p.m. The patient is asked to perform no strenuous activity and see her primary care provider in 4 to 7 days. The patient stated that she is flying to [place] this weekend and there are no contraindications to the patient flying to [place] as long as she does not perform strenuous exercise and she continues to have limited activity with the limited weight lifting as documented in discharge instructions specific to the patient's cardiac catheterizations. Off note, the patient's cardiac catheterization was with right radial artery approach. PHYSICAL EXAMINATION AT DISCHARGE: Blood pressure of 135/75, heart rate of 72 and regular, respiratory rate 16, oxygen saturation 98% on room air, temperature 97.9. General: The patient is a very pleasant 63-year-old female, who is in no acute distress. Alert, awake, and oriented x3. HEENT: Head atraumatic, normocephalic. Eyes: Pupils equal, reactive to light and accommodation. Oropharynx is clear. Mucosa moist. Neck: Supple. No JVD. No bruits bilaterally. Cardiovascular: Regular rate and rhythm. No murmur. Respiratory: Clear to auscultation bilaterally. Abdomen: Soft, nontender. Bowel sounds present in all 4 quadrants. Extremities: There is no edema. Pulses 2+ bilaterally. No clubbing or cyanosis. On neuro evaluation, speech clear. Cranial nerves II through XII grossly intact. Motor strength is 5/5 bilaterally. Please note that this is a short summary of the patient's hospitalization. Please refer to further medical records for details. TIME SPENT: Approximately 40 minutes was spent on the patient's discharge. [id number]/[facility] #: [id number] MTDD
== END 2018-11-12 13:30 | disposition home or self-care (01) | DRG 287 ==
LOC: ED 10:36 → MEDTELE 17:16
PROVIDERS: ADMIT Internal Medicine; ATTEND Internal Medicine
PROC: B2111ZZ Fluoroscopy of Multiple Coronary Arteries using Low Osmolar Contrast (ICD-10-PCS; 2018-11-11)
PROC: B2151ZZ Fluoroscopy of Left Heart using Low Osmolar Contrast (ICD-10-PCS; 2018-11-11)
PROC: 4A023N7 Measurement of Cardiac Sampling and Pressure, Left Heart, Percutaneous Approach (ICD-10-PCS; principal; 2018-11-11 08:45)
DX: I25.110 Atherosclerotic heart disease of native coronary artery with unstable angina pectoris (principal); J45.909 Unspecified asthma, uncomplicated; J42 Unspecified chronic bronchitis; K21.9 Gastro-esophageal reflux disease without esophagitis; M19.90 Unspecified osteoarthritis, unspecified site; M54.30 Sciatica, unspecified side; H26.9 Unspecified cataract; F31.9 Bipolar disorder, unspecified; E78.5 Hyperlipidemia, unspecified; N13.5 Crossing vessel and stricture of ureter without hydronephrosis; Z79.02 Long term (current) use of antithrombotics/antiplatelets; Z88.2 Allergy status to sulfonamides; Z90.49 Acquired absence of other specified parts of digestive tract; Z87.442 Personal history of urinary calculi; I25.2 Old myocardial infarction; Z96.0 Presence of urogenital implants; Z86.73 Personal history of transient ischemic attack (TIA), and cerebral infarction without residual deficits; Z90.710 Acquired absence of both cervix and uterus; Z86.19 Personal history of other infectious and parasitic diseases; Z82.49 Family history of ischemic heart disease and other diseases of the circulatory system; Z83.3 Family history of diabetes mellitus; Z87.891 Personal history of nicotine dependence; Z95.5 Presence of coronary angioplasty implant and graft; Z79.82 Long term (current) use of aspirin
CPT/HCPCS: 36415; 71046; 76937; 80048; 80053; 80061; 81003; 81015; 82550; 82553; 83605; 83735; 83880; 84443; 84484; 85025; 85347; 85379; 85730; 93005; 93458; 99284; A9270-GY; J1644; J1650; J2250; J3010